=== PATIENT | female | born 1995 | race Hispanic/Latino ===

== ENCOUNTER 2021-09-28 18:39 | Emergency (ER) | payer BC, MEDICAID, OTHER ==
[~2021-09-28] VITALS: Ht 154.9 cm; Wt 88.9 kg
[2021-09-28] MEDS ORDERED: ACETAMINOPHEN 500 MG TABLET PO ONE (19:00)
[2021-09-28] MEDS ORDERED: 0.9%NACL 1000ML 1,000 ML IV ONE (19:00)
[2021-09-28 19:24] LABS: BASOPHILS % (AUTO) 0.2 % (0.0-5.0); EOSINOPHILS % (AUTO) 3.3 % (0.0-8.0); HEMATOCRIT 35.5 % (36-48); LYMPHOCYTES % (AUTO) 5.9 % (21.0-51.0); MEAN CORPUSCULAR HEMOGLOBIN 25.8 pg (27.0-33.0); MEAN CORPUSCULAR HGB CONC 33.2 g/dL (32.0-36.0); MEAN CORPUSCULAR VOLUME 77.7 fL (79-99); MONOCYTES % (AUTO) 6.4 % (3.0-13.0); PLATELET COUNT (AUTO) 300 K/uL (130-400); RED BLOOD CELL COUNT(AUTO) 4.57 MIL/uL (4.00-5.50); WHITE BLOOD COUNT (AUTO) 8.5 K/uL (4.8-10.8)
[2021-09-28 19:36] LABS: APPEARANCE,URINE Clear (CLEAR); BILIRUBIN,URINE Negative (NEGATIVE); COLOR,URINE Yellow (YELLOW); GLUCOSE, URINE (UA) Negative (NEGATIVE); KETONES,URINE Negative (NEGATIVE); LEUKOCYTE ESTERASE ,URINE Moderate (NEGATIVE); NITRATE,URINE Negative (NEGATIVE); OCCULT BLOOD,URINE Trace (NEGATIVE); PH,URINE 7.5 (5.0-8.0); PROTEIN,URINE Negative (NEGATIVE); UROBILINOGEN,URINE 0.2 mg/dL (0.2-1.0)
[2021-09-28 19:36] LABS: CREATININE 0.6 mg/dL (0.5-1.5); POTASSIUM 3.6 mmol/L (3.5-5.1)
[2021-09-28 19:49] LABS: BACTERIA,URINE Few /HPF (None Seen); MUCUS,URINE Few LPF (None Seen); SQUAMOUS EPITHELIAL CELL,UR Few /HPF (0-2)
[2021-09-28] MEDS ORDERED: CEFTRIAXONE 1G VIAL IVP ONE (20:00)
[2021-09-28 20:02] LABS: ALBUMIN 3.6 g/dL (3.5-5.0); BILIRUBIN,TOTAL 0.3 mg/dL (0.2-1.0)
[2021-09-28] MEDS ORDERED: ACET-66 PO (20:31)
[2021-09-28] MEDS ORDERED: CETI10TA57 PO (20:31)
[2021-09-28] MEDS ORDERED: CEPH500B PO (20:31)
[2021-09-28] MEDS ORDERED: GUAIF10 PO (20:31)
[2021-09-28 20:32] VITALS: BP 142/77
[2021-09-29] MEDS ORDERED: ONDA4TAB10 PO (10:12)
== END 2021-09-28 21:06 | disposition home or self-care (01) ==
LOC: EDH 18:39
DX: R05.9 Cough, unspecified (principal); J10.1 Influenza due to other identified influenza virus with other respiratory manifestations; N39.0 Urinary tract infection, site not specified; Z20.822 Contact with and (suspected) exposure to COVID-19; Z90.89 Acquired absence of other organs
CPT/HCPCS: 36415; 80053; 81001; 83605; 84702; 85025; 87040 ×2; 87088; 87635; 87804 ×2; 87880; 96361; 96374; 99283; C9803; J0696; J7030

== ENCOUNTER 2021-09-29 08:17 | Emergency (ER) | payer BC, MEDICAID ==
[~2021-09-29] VITALS: Ht 154.9 cm; Wt 88.9 kg
[~2021-09-29 08:17] MED LIST: ACET-66 PO; CEPH500B PO; CETI10TA57 PO; GUAIF10 PO
[2021-09-29] MEDS ORDERED: ACETAMINOPHEN 500 MG TABLET PO ONE (09:00)
[2021-09-29] MEDS ORDERED: ONDANSETRON 4MG INJ IVP ONE (09:00)
[2021-09-29] MEDS ORDERED: 0.9%NACL 1000ML 1,000 ML IV ONE (09:00)
[2021-09-29] MEDS ORDERED: ACETAMINOPHEN 325 MG TAB ONE (09:05)
[2021-09-29] MEDS ORDERED: ONDA4TAB10 PO (10:12)
[2021-09-29 10:33] VITALS: BP 106/72
== END 2021-09-29 10:35 | disposition home or self-care (01) ==
LOC: EDH 08:17
DX: O99.519 Diseases of the respiratory system complicating pregnancy, unspecified trimester (principal); J10.1 Influenza due to other identified influenza virus with other respiratory manifestations; O99.280 Endocrine, nutritional and metabolic diseases complicating pregnancy, unspecified trimester; E86.9 Volume depletion, unspecified; O21.9 Vomiting of pregnancy, unspecified; Z3A.00 Weeks of gestation of pregnancy not specified
CPT/HCPCS: 96374; 99283; J2405; J7030